=== PATIENT | male | born 1950 | race Two or more races ===

== ENCOUNTER 2018-09-30 15:35 | Outpatient (CLI) | payer OTHER | END 2018-09-30 15:50 | disposition home or self-care (01) | LOC: OFIC 805 15:35 | DX: J34.89 Other specified disorders of nose and nasal sinuses (principal); R49.22 Hyponasality; R04.0 Epistaxis; R09.81 Nasal congestion ==

== ENCOUNTER → 2024-08-02 | Emergency (ER) | payer OTHER ==
[~2024-08-02] VITALS: Ht 165.1 cm; Wt 61.2 kg
[~2024-08-02] MED LIST: ARICEPT10 MG PO; B-121000 MC1 PO; COZAAR50 MG PO; FAMOTIDINE/PF 20 MG/2 ML VIAL IV PUSH STA; NAMENDA1 EACH PO; PLAVIX75 MG PO; PROSCAR5 MG PO; SIMVASTATIN5 MG PO; TAMS0.4C PO
== END | disposition left against medical advice (07) ==
LOC: ER 20:31
DX: R07.9 Chest pain, unspecified (principal); G30.8 Other Alzheimer's disease; F02.80 Dementia in other diseases classified elsewhere, unspecified severity, without behavioral disturbance, psychotic disturbance, mood disturbance, and anxiety